=== PATIENT | male | born 2000 ===

== ENCOUNTER → 2025-10-12 | Outpatient (REF) | payer OTHER ==
[2025-10-12 09:28] LABS: SEMEN APPEARANCE OPAQUE (OPAQUE); SEMEN VISCOSITY LIQUID (LIQUID); SEMEN VOLUME 2.2 ml (2.0-5.0)
[2025-10-12 09:29] LABS: SPERM CONCENTRATION 214.1 M/ml (>=15.0); WBC CONCENTRATION <=1 M/ml (<=1 M/ml)
[2025-10-12 09:30] LABS: TOTAL PROGRESSIVE SPERM 205.8 M/Ejac.
== END ==
LOC: M LAB REF 09:18
PROVIDERS: ATTEND Student in an Organized Health Care Education/Training Program
DX: Z31.41 Encounter for fertility testing (principal)